=== PATIENT | female | born 1955 | race Caucasian/White ===

== ENCOUNTER → 2023-09-27 06:30 | Outpatient (CLI) | payer OTHER, SELFPAY ==
--- NOTE | 2023-09-27 06:32 | DI.ECHO.S_ITS ---
[facility] : : [id number] : : [place] : : [id number] : : Phone: [phone] Echocardiogram Report + + :Name: DELIA FELIZ Study Date: 09/27/2023 Height: 65 in : :[facility] ReadingLocation: Weight: 160 lb : : Gender: Female BSA: 1.8 m2 : :: 1955 Age: 67 yrs BP: 140/94 mmHg: :Reason For Study: PVS : :Ordering Physician: : :PREETHI TEMPLETON Performed By: Berenice Castellano : :Referring: PREETHI TEMPLETON : + + Interpretation Summary The left ventricular cavity is small. The left ventricle is hyperdynamic. The ejection fraction is estimated to be 75-80%. The Doppler profile in the LV cavity has dagger shaped suggestive of intracavitary obstruction. However the velocity is not very high. Based on velocities, which are less than 2 m/s, no significant intracavitary obstruction. The right ventricle is grossly normal size. The right ventricle is hyperdynamic. The aortic valve is mildly calcified. There is mildly reduced leaflet mobility. There is no hemodynamically significant valvular aortic stenosis. The pulmonic valve is not well visualized. No significant pulmonary stenosis. The IVC is of normal diameter and collapses greater than 50% with a sniff. This suggests a low right atrial pressure of 3 mm Hg. Procedure: A two-dimensional transthoracic echocardiogram with color flow and Doppler was performed. The study quality was technically difficult. There is no prior echocardiogram noted for this patient. The patient was in sinus rhythm with heart rates between 76-88 bpm during the exam. Left Ventricle: The left ventricular cavity is small. There is normal left ventricular wall thickness. An intracavitary gradient is suspected. There is no thrombus. The left ventricle is hyperdynamic. The ejection fraction is estimated to be 75-80%. There are no focal wall motion abnormalities. Right Ventricle: The right ventricle is grossly normal size. The right ventricle is hyperdynamic. Atria: The left atrial size is normal. Right atrial size is normal. There is no Doppler evidence for an interatrial shunt. Mitral Valve: The mitral valve leaflets are slightly calcified. There is trace mitral regurgitation. Aortic Valve: The aortic valve is trileaflet. There is mild aortic valve sclerosis. There is mildly reduced leaflet mobility. The aortic valve is mildly calcified. There is no hemodynamically significant valvular aortic stenosis. No aortic regurgitation is present. Tricuspid Valve: The tricuspid valve is not well visualized, but is grossly normal. There is trace tricuspid regurgitation. Pulmonary artery pressures cannot be estimated because of the lack of a measurable TR jet velocity. Pulmonic Valve: The pulmonic valve is not well visualized. Pulmonic mean gradient of 2.8mmHg. No significant pulmonary stenosis. There is trace pulmonic regurgitation. Great Vessels: The aortic root is normal size. The dimensions of the ascending aorta are normal. The IVC is of normal diameter and collapses greater than 50% with a sniff. This suggests a low right atrial pressure of 3 mm Hg. Pericardium/ Pleura There is no pericardial effusion. There is an anterior echo-free space consistent with a fat pad. There is no pleural effusion. MMode/2D Measurements & Calculations LVIDd: 3.8 cm LVOT diam: 2.0 cm LVIDs: 2.7 cm Ao root diam: 3.0 cm FS: 30.4 % asc Aorta Diam: 3.2 cm IVSd: 0.84 cm Ao Arch Diam (Prox Trans): 2.2 cm LVPWd: 0.94 cm LV powers. diameter/BSA (cm/m^2): 2.1 LV sys. diameter/BSA (cm/m^2): 1.5 LA A2 area: 16.4 cm2 RA long axis: 4.7 cm LA A4 area: 13.5 cm2 RA area: 12.3 cm2 LA length (vol): 4.8 cm RA vol: 27.1 ml LA vol: 38.8 ml RA : 15.0 ml/m2 LA vol index: 21.6 ml/m2 IVC diam: 1.6 cm TAPSE: 2.3 cm Doppler Measurements & Calculations Ao V2 max: 171.1 cm/sec LVOT Max Luis Eduardo: 134.5 cm/sec Ao V2 mean: 120.0 cm/sec LV V1 max P.2 mmHg Ao max P.7 mmHg LV V1 VTI: 24.0 cm Ao mean P.4 mmHg CHAY(I,D): 2.5 cm2 Ao V2 VTI: 31.5 cm CHAY(V,D): 2.6 cm2 sev ratio: 0.76 CHAY indexed to BSA (cm^2/m^2): 1.4 MV E max luis eduardo: 51.7 cm/sec PA V2 max: 107.0 cm/sec MV A max luis eduardo: 79.2 cm/sec PA V2 mean: 74.5 cm/sec MV E/A: 0.65 PA mean P.5 mmHg Med Peak E' Luis Eduardo: 7.5 cm/sec PA pr(Accel): 51.7 mmHg E/E' med: 6.9 PA Accel Time: 0.07 sec Lat Peak E' Luis Eduardo: 7.5 cm/sec E/E' lat: 6.9 E/e' average: 6.9 MV dec time: 0.28 sec SV(LVOT): 78.4 ml Reading Physician:04:40 PM
== END ==
LOC: ECHO 06:31
PROVIDERS: Referring Provider Internal Medicine Cardiovascular Disease; Visit Provider Internal Medicine Cardiovascular Disease
DX: I37.0 Nonrheumatic pulmonary valve stenosis (principal); I35.8 Other nonrheumatic aortic valve disorders
CPT/HCPCS: 93306

== ENCOUNTER → 2023-11-20 13:05 | Outpatient (CLI) | payer OTHER, SELFPAY | PROVIDERS: Family Provider Nurse Practitioner; PCP Nurse Practitioner; Referring Provider Internal Medicine Cardiovascular Disease; Visit Provider Internal Medicine Cardiovascular Disease | DX: R06.02 Shortness of breath (principal); F17.210 Nicotine dependence, cigarettes, uncomplicated | CPT/HCPCS: 94060; 94726; 94729 ==